=== PATIENT | female | born 1960 | race Caucasian/White ===

== ENCOUNTER 2023-11-21 09:02 | Emergency (ER) | payer BC ==
--- NOTE | 2023-11-21 09:48 | ED ---
General Adult HPI - General Chief complaint: Recheck/Abnormal Lab/Rx Stated complaint: Hypertension Time Seen by Provider: 11/21/23 09:11 Source: patient, RN notes reviewed Mode of arrival: ambulatory Limitations: no limitations - History of Present Illness Initial comments: 62-year-old female presents emergency department with chief complaint of hyperte nsion. Patient states she was just hospitalized and discharged from [facility] for a kidney stone which she had a stent placed. Patient states that her blood pressure was elevated 200/100 upon discharge she states that she did take her blood pressure medications this morning and it continues to be elevated. Patient states she has no complaints of chest pain shortness of breath fevers chills abdominal pain, flank pain. She states she is on ramipril for her blood pressure in which she is followed by her PCP. She denies any medication changes. She believes she was not receiving her medications while she was admitted though she reports taking it this morning a few hours prior to ER visit. - Related Data Home Medications Medication Instructions Recorded Confirmed Baclofen 10 mg PO BID 11/09/15 11/23/22 Calcium Carbonate [Calcium] 600 mg PO BID 11/09/15 11/23/22 Cholecalciferol [Vitamin D3] 1,000 unit PO BID 11/09/15 11/23/22 FLUoxetine HCL [PROzac] 20 mg PO DAILY 11/09/15 11/23/22 Multivitamin With Collagen 2 tab PO DAILY 11/09/15 11/23/22 Simvastatin [Zocor] 10 mg PO HS 11/09/15 11/23/22 Solifenacin Succinate [Vesicare] 10 mg PO HS 11/09/15 11/23/22 ramipriL [Altace] 5 mg PO DAILY 11/09/15 11/23/22 Etodolac [Lodine] 400 mg PO BID 11/23/22 11/23/22 SUMAtriptan succinate [Imitrex] 25 mg PO DIRECTED PRN 11/23/22 11/23/22 Topiramate [Topamax] 50 mg PO HS 11/23/22 11/23/22 Previous Rx's Medication Instructions Recorded Dicyclomine [Bentyl] 10 mg PO TID PRN 7 Days #21 capsule 11/21/22 Ondansetron Odt [Zofran Odt] 4 mg PO Q8HR PRN 2 Days #6 tab 11/21/22 traMADol HCl [Ultram] 50 mg PO Q6H PRN #6 tab 11/27/22 Allergies Allergy/AdvReac Type Severity Reaction Status Date / Time adhesive AdvReac Severe TEARS SKIN Verified 11/21/23 09:09 adhesive tape AdvReac Severe TEARS SKIN Verified 11/21/23 09:09 pregabalin [From [place]] AdvReac Unknown PALE, Verified 11/21/23 09:09 DOESNT FEEL WELL acetaminophen [From [place]] AdvReac Unknown Verified 11/21/23 09:10 hydrocodone [From [place]] AdvReac Unknown Verified 11/21/23 09:10 Review of Systems ROS Statement: Those systems with pertinent positive or pertinent negative responses have been documented in the HPI. ROS Other: All systems not noted in ROS Statement are negative. Past Medical History Past Medical History: Hypertension, Musculoskeletal Disorder, Osteoarthritis (OA) Additional Past Medical History / Comment(s): RSD right knee, DDD , BACK PAIN. HAD [employer] PAIN STIMULATOR IN RIGHT HIP-has been removed, possible TIA 1993- had left sided weakness for short time but resolved, HX OF HEMORRHOIDS & FISSURES. past hx kidney stones, gallstones History of Any Multi-Drug Resistant Organisms: None Reported Past Surgical History: Hysterectomy, Joint Replacement, Orthopedic Surgery, Tubal Ligation Additional Past Surgical History / Comment(s): JONNY BUNIONECTOMY, JONNY SHOULDER SURGERY, RIGHT TOTAL KNEE, JONNY CARPAL TUNNEL, PAIN STIMULATOR RIGHT HIP-then removed Past Anesthesia/Blood Transfusion Reactions: No Reported Reaction Past Psychological History: Anxiety, Depression Smoking Status: Former smoker Past Alcohol Use History: None Reported Past Drug Use History: None Reported - Past Family History Mother Family Medical History: Cancer Additional Family Medical History / Comment(s): SPINE AND LUNG CA Father Family Medical History: Cancer Additional Family Medical History / Comment(s): EMPHYSEMA, BLACK LUNG General Exam Limitations: no limitations General appearance: alert, in no apparent distress Head exam: Present: atraumatic, normocephalic, normal inspection Neck exam: Present: normal inspection. Absent: tenderness, meningismus, lymphadenopathy Respiratory exam: Present: normal lung sounds bilaterally. Absent: respiratory distress, wheezes, rales, rhonchi, stridor Cardiovascular Exam: Present: regular rate, normal rhythm, normal heart sounds. Absent: systolic murmur, diastolic murmur, rubs, gallop, clicks GI/Abdominal exam: Present: soft, normal bowel sounds. Absent: distended, tenderness, guarding, rebound, rigid Course Vital Signs 11/21/23 11/21/23 11/21/23 09:07 09:24 09:57 Temperature 98.1 F Pulse Rate 55 L 54 L 49 L Respiratory 18 18 Rate Blood Pressure 202/73 196/87 186/82 O2 Sat by Pulse 97 Oximetry 11/21/23 11/21/23 11/21/23 10:45 13:12 13:52 Temperature Pulse Rate 56 L 65 60 Respiratory 16 16 16 Rate Blood Pressure 173/66 154/64 149/69 O2 Sat by Pulse 98 98 97 Oximetry EKG Findings - EKG Comments: EKG Findings:: EKG performed at 9: 16 sinus bradycardia rate of 51 NM 147 QRS 96 QT/QTc 491/468 - EKG Results: EKG: interpreted by OLLIE Medical Decision Making - Medical Decision Making Was pt. sent in by a medical professional or institution (, PA, PERFORMANCE SOLUTIONS SPECIALIST, urgent care, hospital, or jail...) When possible be specific @ -No Did you speak to anyone other than the patient for history (EMS, parent, family, police, friend...)? What history was obtained from this source @ -No Did you review nursing and triage notes (agree or disagree)? Why? @ -I reviewed and agree with nursing and triage notes Were old charts reviewed (outside hosp., previous admission, EMS record, old EKG, old radiological studies, urgent care reports/EKG's, jail records)? Report findings @ -No old charts were reviewed Differential Diagnosis (chest pain, altered mental status, abdominal pain women, abdominal pain men, vaginal bleeding, weakness, fever, dyspnea, syncope, headache, dizziness, GI bleed, back pain, seizure, CVA, palpatations, mental health, musculoskeletal)? @ -Differential Chest Pain: Stable Angina, Unstable Angina, STEMI, NSTEMI Aortic Dissection, Pneumothorax, Musculoskeletal, Esophageal Spasm GERD, Cholecystitis, Pancreatitis, Zoster, this is not meant to be an all-inclusive list. EKG interpreted by me (3pts min.). @ -As above X-rays interpreted by me (1pt min.). @ -None done CT interpreted by me (1pt min.). @ -None done U/S interpreted by me (1pt. min.). @ -None done What testing was considered but not performed or refused? (CT, X-rays, U/S, labs)? Why? @ -None What meds were considered but not given or refused? Why? @ -None Did you discuss the management of the patient with other professionals (professionals i.e. Dr., PA, PERFORMANCE SOLUTIONS SPECIALIST, lab, RT, psych nurse, social services director, learn to swim instructor, teacher, marketing and communications officer, shelter case manager)? Give summary @ -No Was smoking cessation discussed for >3mins.? @ -No Was critical care preformed (if so, how long)? @ -No Were there social determinants of health that impacted care today? How? (Homelessness, low income, unemployed, alcoholism, drug addiction, transportation, low edu. Level, literacy, decrease access to med. care, snf, rehab)? @ -No Was there de-escalation of care discussed even if they declined (Discuss DNR or withdrawal of care, Hospice)? DNR status @ -No What co-morbidities impacted this encounter? (DM, HTN, Smoking, COPD, CAD, Cancer, CVA, ARF, Chemo, Hep., AIDS, mental health diagnosis, sleep apnea, morbid obesity)? @ -None Was patient admitted / discharged? Hospital course, mention meds given and route, prescriptions, significant lab abnormalities, going to OR and other pertinent info. @ -Discharge patient blood pressure improved patient feels greatly improved at this time. Patient has an appointment tomorrow made by the ER with her PCP regarding her blood pressure. Patient was given lisinopril dose for tomorrow morning she has a monitor at home and will return for any worsening changes symptoms. Undiagnosed new problem with uncertain prognosis? @ -No Drug Therapy requiring intensive monitoring for toxicity (Heparin, Nitro, Insulin, Cardizem)? @ -No Were any procedures done? @ -No Diagnosis/symptom? @ -Hypertension Acute, or Chronic, or Acute on Chronic? @ -Acute Uncomplicated (without systemic symptoms) or Complicated (systemic symptoms)? @ -Uncomplicated Side effects of treatment? @ -No Exacerbation, Progression, or Severe Exacerbation? @ -No Poses a threat to life or bodily function? How? (Chest pain, USA, PR, pneumonia, PE, COPD, DKA, ARF, appy, cholecystitis, CVA, Diverticulitis, Homicidal, Suicidal, threat to staff... and all critical care pts) @ -No - Lab Data Result diagrams: 11/21/23 09:50 11/21/23 09:50 Lab Results 11/21/23 11/21/23 11/21/23 Range/Units 09:50 09:50 11:23 WBC 6.2 (3.8-10.6) k/uL RBC 3.35 L (3.80-5.40) m/uL Hgb 10.7 L (11.4-16.0) gm/dL Hct 33.5 L (34.0-46.0) % MCV 99.9 (80.0-100.0) fL MCH 32.1 (25.0-35.0) pg MCHC 32.1 (31.0-37.0) g/dL RDW 12.5 (11.5-15.5) % Plt Count 208 (150-450) k/uL MPV 9.1 Neutrophils % 79 % Lymphocytes % 10 % Monocytes % 6 % Eosinophils % 2 % Basophils % 0 % Neutrophils # 4.9 (1.3-7.7) k/uL Lymphocytes # 0.6 L (1.0-4.8) k/uL Monocytes # 0.3 (0-1.0) k/uL Eosinophils # 0.1 (0-0.7) k/uL Basophils # 0.0 (0-0.2) k/uL Sodium 139 (137-145) mmol/L Potassium 3.7 (3.5-5.1) mmol/L Chloride 110 H (98-107) mmol/L Carbon Dioxide 21 L (22-30) mmol/L Anion Gap 8 mmol/L BUN 13 (7-17) mg/dL Creatinine 0.74 (0.52-1.04) mg/dL Est GFR (CKD-EPI)AfAm >90 (>60 ml/min/1.73 sqM) Est GFR (CKD-EPI)NonAf 88 (>60 ml/min/1.73 sqM) Glucose 89 (74-99) mg/dL Calcium 9.0 (8.4-10.2) mg/dL Total Bilirubin 0.8 (0.2-1.3) mg/dL AST 55 H (14-36) U/L ALT 79 H (4-34) U/L Alkaline Phosphatase 292 H (38-126) U/L Total Protein 6.0 L (6.3-8.2) g/dL Albumin 3.2 L (3.5-5.0) g/dL Urine Color Light Yellow Urine Appearance Clear (Clear) Urine pH 7.5 (5.0-8.0) Ur Specific [place] 1.011 (1.001-1.035) Urine Protein Trace H (Negative) Urine Glucose (UA) Negative (Negative) Urine Ketones 1+ H (Negative) Urine Blood Moderate H (Negative) Urine Nitrite Negative (Negative) Urine Bilirubin 2+ H (Negative) Urine Urobilinogen <2.0 (<2.0) mg/dL Ur Leukocyte Esterase Trace H (Negative) Urine RBC >182 H (0-5) /hpf Urine WBC 8 H (0-5) /hpf Ur Squamous Epith Cells <1 (0-4) /hpf Urine Mucus Rare H (None) /hpf Disposition Clinical Impression: Hypertension Disposition: HOME SELF-CARE Condition: Stable Instructions (If sedation given, give patient instructions): Hypertension (ED) Additional Instructions: Please return to the Emergency Department if symptoms worsen or any other concerns. Is patient prescribed a controlled substance at d/c from ED?: No Referrals: Mary Lou Bonner MD [Primary Care Provider] - 11/22/23 1:30 pm Time of Disposition: 12:22
[2023-11-21] MEDS: hydrALAZINE HCL 20 MG/ML 1 ML VIAL IVP STA ×2 (09:57→11:49)
[2023-11-21 09:58] LABS: Basophils % (A) 0 %; Eosinophils # (A) 0.1 k/uL (0-0.7); Eosinophils % (A) 2 %; HCT 33.5 % (34.0-46.0); HGB 10.7 gm/dL (11.4-16.0); Lymphocytes # (A) 0.6 k/uL (1.0-4.8); Lymphocytes % (A) 10 %; MCH 32.1 pg (25.0-35.0); MCHC 32.1 g/dL (31.0-37.0); MCV 99.9 fL (80.0-100.0); Mean Platelet Volume 9.1; Monocytes # (A) 0.3 k/uL (0-1.0); Monocytes % (A) 6 %; Neutrophils # (A) 4.9 k/uL (1.3-7.7); Neutrophils % (A) 79 %; Platelet Count 208 k/uL (150-450); RBC 3.35 m/uL (3.80-5.40); RDW 12.5 % (11.5-15.5); WBC 6.2 k/uL (3.8-10.6)
[2023-11-21 10:10] LABS: ALT 79 U/L (4-34); AST 55 U/L (14-36); African American GFR (CKD) >90 (>60 ml/min/1.73 sqM); Albumin 3.2 g/dL (3.5-5.0); Alkaline Phosphatase 292 U/L (38-126); Anion Gap 8 mmol/L; Blood Urea Nitrogen 13 mg/dL (7-17); Carbon Dioxide 21 mmol/L (22-30); Chloride 110 mmol/L (98-107); Glucose 89 mg/dL (74-99); Non-African American GFR(CKD) 88 (>60 ml/min/1.73 sqM); Potassium 3.7 mmol/L (3.5-5.1); Sodium 139 mmol/L (137-145); Total Bilirubin 0.8 mg/dL (0.2-1.3)
[2023-11-21 10:42] VITALS: TEMP 98.1
[2023-11-21 11:36] VITALS: RESP 16
[2023-11-21 11:51] LABS: Appearance,Urine Clear (Clear); Bilirubin,Urine 2+ (Negative); Blood,Urine Moderate (Negative); Color,Urine Light Yellow; Glucose,Urine (UA) Negative (Negative); Ketones,Urine 1+ (Negative); Leukocyte Esterase,Urine Trace (Negative); Mucus,Urine Rare /hpf; Nitrite,Urine Negative (Negative); PH, Urine 7.5 (5.0-8.0); Protein,Urine Trace (Negative); RBC,Urine >182 /hpf (0-5); Specific Gravity,Urine 1.011 (1.001-1.035); Squamous Epithelial Cell,Urine <1 /hpf (0-4); Urobilinogen,Urine <2.0 mg/dL (<2.0); WBC,Urine 8 /hpf (0-5)
[2023-11-21] MEDS: lisinopriL 10 MG TAB PO STA (12:33)
[2023-11-21] MEDS: SODIUM CHLORIDE 0.9% 500 ML 500 ML IV ONE (13:09)
[2023-11-21] MEDS: ONDANSETRON 4 MG/2 ML VIAL IVP STA (13:09)
[2023-11-21 14:17] VITALS: BP 149/69; PULSE 60
== END 2023-11-21 13:53 | disposition home or self-care (01) ==
LOC: EC 09:02
DX: I10 Essential (primary) hypertension (principal); R00.1 Bradycardia, unspecified; Z88.5 Allergy status to narcotic agent; Z88.6 Allergy status to analgesic agent; Z88.8 Allergy status to other drugs, medicaments and biological substances; Z91.09 Other allergy status, other than to drugs and biological substances; Z87.891 Personal history of nicotine dependence
CPT/HCPCS: 36415; 93005; 80053; 85025; 81001; 99284; 96374; 96375; 96376; 96361; J0360; J2405

== ENCOUNTER → 2024-01-10 | Outpatient (CLI) | payer BC ==
--- NOTE | 2024-01-16 11:54 | MM ---
Reason for Exam: Screening (asymptomatic). Last mammogram was performed 1 year(s) and 3 month(s) ago. Patient History: Menarche at age 12. First Full-Term at age 25. Hysterectomy at age 33. Postmenopausal. Risk Values: Lazara 5 year model risk: 1.7%. NCI Lifetime model risk: 7.4%. Prior Study Comparison: 10/23/2007 Bilateral Screening Mammogram, [facility]. 05/13/2021 Bilateral Screening Mammogram, [facility]. 09/08/2022 Bilateral Screening Mammogram, [facility]. 09/26/2022 Right Diagnostic Mammogram, [facility]. Tissue Density: The breasts are almost entirely fatty. Findings: Analyzed By CAD. Right breast: There is no suspicious group of microcalcifications or new suspicious mass. Left breast: There is no suspicious group of microcalcifications or new suspicious mass. Overall Assessment: Negative, BI-RAD 1 Management: Screening Mammogram of both breasts in [address] [facility] will attempt to contact patient to return for supplemental views and ultrasound if indicated. Patient should continue monthly self-breast exams. A clinical breast exam by your physician is recommended on an annual basis. This exam should not preclude additional follow-up of suspicious palpable abnormalities. Note on Lazara scores and lifetime risk: 1. A Lazara score greater than 3% is considered moderate risk. If this is the case, consider specialist referral to assess eligibility for a risk reducing agent. 2. If overall lifetime risk for the development of breast cancer is 20% or higher, the patient may qualify for future screening with alternating mammogram and breast MRI. Electronically signed and approved by: Karson Rasmussen DO
== END | disposition home or self-care (01) ==
LOC: RADMAMWWP 13:01
PROVIDERS: ATTEND Family Medicine
DX: Z12.31 Encounter for screening mammogram for malignant neoplasm of breast (principal); Z78.0 Asymptomatic menopausal state
CPT/HCPCS: 77063; 77067

== ENCOUNTER 2024-04-07 10:03 | Emergency (ER) | payer BC ==
[2024-04-07 10:20] VITALS: RESP 18; TEMP 98.1
--- NOTE | 2024-04-07 10:33 | ED ---
General Adult HPI - General Chief complaint: Back Pain/Injury Stated complaint: Back pain Time Seen by Provider: 04/07/24 10:21 Source: patient, family, RN notes reviewed Mode of arrival: ambulatory Limitations: no limitations - History of Present Illness Initial comments: 63-year-old female presents emergency department with chief complaint of right flank pain right lower back pain. She states it has been bothersome for the last 6 days. States it is worse with movement. States that she does have a history of kidney stones and feels somewhat similar. She denies any bowel, bladder Tea retention no lower extremity symptoms denies any saddle ane sthesias. Patient states she is better at rest placement some nausea without current vomiting no change in bowel habits. - Related Data Home Medications Medication Instructions Recorded Confirmed Baclofen 10 mg PO BID 11/09/15 11/23/22 Calcium Carbonate [Calcium] 600 mg PO BID 11/09/15 11/23/22 Cholecalciferol [Vitamin D3] 1,000 unit PO BID 11/09/15 11/23/22 FLUoxetine HCL [PROzac] 20 mg PO DAILY 11/09/15 11/23/22 Multivitamin With Collagen 2 tab PO DAILY 11/09/15 11/23/22 Simvastatin [Zocor] 10 mg PO HS 11/09/15 11/23/22 Solifenacin Succinate [Vesicare] 10 mg PO HS 11/09/15 11/23/22 ramipriL [Altace] 5 mg PO DAILY 11/09/15 11/23/22 Etodolac [Lodine] 400 mg PO BID 11/23/22 11/23/22 SUMAtriptan succinate [Imitrex] 25 mg PO DIRECTED PRN 11/23/22 11/23/22 Topiramate [Topamax] 50 mg PO HS 11/23/22 11/23/22 Previous Rx's Medication Instructions Recorded Dicyclomine [Bentyl] 10 mg PO TID PRN 7 Days #21 capsule 11/21/22 Ondansetron Odt [Zofran Odt] 4 mg PO Q8HR PRN 2 Days #6 tab 11/21/22 traMADol HCl [Ultram] 50 mg PO Q6H PRN #6 tab 11/27/22 Cephalexin [Keflex] 500 mg PO Q8HR #21 cap 04/07/24 Allergies Allergy/AdvReac Type Severity Reaction Status Date / Time adhesive AdvReac Severe TEARS SKIN Verified 04/07/24 10:20 adhesive tape AdvReac Severe TEARS SKIN Verified 04/07/24 10:20 pregabalin [From [place]] AdvReac Unknown PALE, Verified 04/07/24 10:20 DOESNT FEEL WELL acetaminophen [From [place]] AdvReac Unknown Verified 04/07/24 10:20 hydrocodone [From [place]] AdvReac Unknown Verified 04/07/24 10:20 Review of Systems ROS Statement: Those systems with pertinent positive or pertinent negative responses have been documented in the HPI. ROS Other: All systems not noted in ROS Statement are negative. Past Medical History Past Medical History: Hypertension, Musculoskeletal Disorder, Osteoarthritis (OA) Additional Past Medical History / Comment(s): RSD right knee, DDD , BACK PAIN. HAD [employer] PAIN STIMULATOR IN RIGHT HIP-has been removed, possible TIA 1993- had left sided weakness for short time but resolved, HX OF HEMORRHOIDS & FISSURES. past hx kidney stones, gallstones History of Any Multi-Drug Resistant Organisms: None Reported Past Surgical History: Hysterectomy, Joint Replacement, Orthopedic Surgery, Tubal Ligation Additional Past Surgical History / Comment(s): JONNY BUNIONECTOMY, JONNY SHOULDER SURGERY, RIGHT TOTAL KNEE, JONNY CARPAL TUNNEL, PAIN STIMULATOR RIGHT HIP-then removed Past Anesthesia/Blood Transfusion Reactions: No Reported Reaction Past Psychological History: Anxiety, Depression Smoking Status: Former smoker Past Alcohol Use History: Rare Past Drug Use History: None Reported - Past Family History Mother Family Medical History: Cancer Additional Family Medical History / Comment(s): SPINE AND LUNG CA Father Family Medical History: Cancer Additional Family Medical History / Comment(s): EMPHYSEMA, BLACK LUNG General Exam Limitations: no limitations General appearance: alert, in no apparent distress Head exam: Present: atraumatic, normocephalic, normal inspection Neck exam: Present: normal inspection. Absent: tenderness, meningismus, lymphadenopathy Respiratory exam: Present: normal lung sounds bilaterally. Absent: respiratory distress, wheezes, rales, rhonchi, stridor Cardiovascular Exam: Present: regular rate, normal rhythm, normal heart sounds. Absent: systolic murmur, diastolic murmur, rubs, gallop, clicks GI/Abdominal exam: Present: soft, normal bowel sounds. Absent: distended, tenderness, guarding, rebound, rigid Back exam: Present: full ROM, tenderness, CVA tenderness (R), paraspinal te nderness. Absent: CVA tenderness (L), vertebral tenderness Neurological exam: Present: reflexes normal. Absent: motor sensory deficit Course Vital Signs 04/07/24 04/07/24 10:17 12:10 Temperature 98.1 F Pulse Rate 55 L 54 L Respiratory 18 18 Rate Blood Pressure 151/80 145/84 O2 Sat by Pulse 98 97 Oximetry Medical Decision Making - Medical Decision Making Was pt. sent in by a medical professional or institution (, PA, RATCHET SETTER, urgent care, hospital, or long term...) When possible be specific @ -No Did you speak to anyone other than the patient for history (EMS, parent, family, police, friend...)? What history was obtained from this source @ -No Did you review nursing and triage notes (agree or disagree)? Why? @ -I reviewed and agree with nursing and triage notes Were old charts reviewed (outside hosp., previous admission, EMS record, old EKG, old radiological studies, urgent care reports/EKG's, long term records)? Report findings @ -No old charts were reviewed Differential Diagnosis (chest pain, altered mental status, abdominal pain women, abdominal pain men, vaginal bleeding, weakness, fever, dyspnea, syncope, headache, dizziness, GI bleed, back pain, seizure, CVA, palpatations, mental health, musculoskeletal)? @ -Differential Back Pain: Strain, zoster, cauda equina syndrome, epidural abscess, vertebral osteomyelitis, discitis, fracture, subluxation, disc herniation, DJD, spinal stenosis, dissection, AAA, pancreatitis, peptic ulcer disease, pyelonephritis, kidney stone, this is not meant to be an all-inclusive list. EKG interpreted by me (3pts min.). @ -None X-rays interpreted by me (1pt min.). @ -None done CT interpreted by me (1pt min.). @ -None done U/S interpreted by me (1pt. min.). @ -None done What testing was considered but not performed or refused? (CT, X-rays, U/S, labs)? Why? @ -None What meds were considered but not given or refused? Why? @ -None Did you discuss the management of the patient with other professionals (professionals i.e. , PA, RATCHET SETTER, lab, RT, psych nurse, social problems specialist, dipper fish, teacher, seal delivery vehicle officer, renal case manager)? Give summary @ -No Was smoking cessation discussed for >3mins.? @ -No Was critical care preformed (if so, how long)? @ -No Were there social determinants of health that impacted care today? How? (Homelessness, low income, unemployed, alcoholism, drug addiction, tr ansportation, low edu. Level, literacy, decrease access to med. care, penitentiary, rehab)? @ -No Was there de-escalation of care discussed even if they declined (Discuss DNR or withdrawal of care, Hospice)? DNR status @ -No What co-morbidities impacted this encounter? (DM, HTN, Smoking, COPD, CAD, Cancer, CVA, ARF, Chemo, Hep., AIDS, mental health diagnosis, sleep apnea, morbid obesity)? @ -None Was patient admitted / discharged? Hospital course, mention meds given and route, prescriptions, significant lab abnormalities, going to OR and other pertinent info. @ -Discharge patient feels great and. This time patient does have evidence of UTI concerning for possible early pyelonephritis. Patient does have reproducible back pain worse with movement. Patient be discharged in stable condition return [place] discussed patient received Rocephin. Undiagnosed new problem with uncertain prognosis? @ -No Drug Therapy requiring intensive monitoring for toxicity (Heparin, Nitro, Insulin, Cardizem)? @ -No Were any procedures done? @ -No Diagnosis/symptom? @ -UTI, back pain Acute, or Chronic, or Acute on Chronic? @ -Acute Uncomplicated (without systemic symptoms) or Complicated (systemic symptoms)? @ -Complicated Side effects of treatment? @ -No Exacerbation, Progression, or Severe Exacerbation? @ -No Poses a threat to life or bodily function? How? (Chest pain, USA, AR, pneumonia, PE, COPD, DKA, ARF, appy, cholecystitis, CVA, Diverticulitis, Homicidal, Suicidal, threat to staff... and all critical care pts) @ -No - Lab Data Result diagrams: 04/07/24 10:45 04/07/24 10:45 Lab Results 04/07/24 04/07/24 04/07/24 Range/Units 10:45 10:45 10:45 WBC 6.1 (3.8-10.6) k/uL RBC 4.02 (3.80-5.40) m/uL Hgb 13.2 (11.4-16.0) gm/dL Hct 40.8 (34.0-46.0) % MCV 101.3 H (80.0-100.0) fL MCH 32.8 (25.0-35.0) pg MCHC 32.3 (31.0-37.0) g/dL RDW 13.1 (11.5-15.5) % Plt Count 280 (150-450) k/uL MPV 8.1 Neutrophils % 71 % Lymphocytes % 18 % Monocytes % 5 % Eosinophils % 3 % Basophils % 0 % Neutrophils # 4.3 (1.3-7.7) k/uL Lymphocytes # 1.1 (1.0-4.8) k/uL Monocytes # 0.3 (0-1.0) k/uL Eosinophils # 0.2 (0-0.7) k/uL Basophils # 0.0 (0-0.2) k/uL Macrocytosis Slight Sodium 139 (137-145) mmol/L Potassium 4.3 (3.5-5.1) mmol/L Chloride 104 (98-107) mmol/L Carbon Dioxide 29 (22-30) mmol/L Anion Gap 6 mmol/L BUN 28 H (7-17) mg/dL Creatinine 1.02 (0.52-1.04) mg/dL Est GFR (CKD-EPI)AfAm 68 (>60 ml/min/1.73 sqM) Est GFR (CKD-EPI)NonAf 59 (>60 ml/min/1.73 sqM) Glucose 87 (74-99) mg/dL Calcium 9.9 (8.4-10.2) mg/dL Total Bilirubin 0.5 (0.2-1.3) mg/dL AST 26 (14-36) U/L ALT 13 (4-34) U/L Alkaline Phosphatase 95 (38-126) U/L Total Protein 6.6 (6.3-8.2) g/dL Albumin 4.0 (3.5-5.0) g/dL Lipase 190 (23-300) U/L Urine Color Light Yellow Urine Appearance Clear (Clear) Urine pH 6.0 (5.0-8.0) Ur Specific [place] 1.014 (1.001-1.035) Urine Protein Negative (Negative) Urine Glucose (UA) Negative (Negative) Urine Ketones Negative (Negative) Urine Blood Negative (Negative) Urine Nitrite Negative (Negative) Urine Bilirubin 2+ H (Negative) Urine Urobilinogen <2.0 (<2.0) mg/dL Ur Leukocyte Esterase Large H (Negative) Urine RBC 2 (0-5) /hpf Urine WBC 43 H (0-5) /hpf Ur Squamous Epith Cells 4 (0-4) /hpf Urine Bacteria Occasional H (None) /hpf Urine Mucus Rare H (None) /hpf Disposition Clinical Impression: UTI (urinary tract infection), Back pain Disposition: HOME SELF-CARE Condition: Stable Instructions (If sedation given, give patient instructions): Acute Low Back Pain (ED) Additional Instructions: Please return to the Emergency Department if symptoms worsen or any other concerns. Prescriptions: Cephalexin [Keflex] 500 mg PO Q8HR #21 cap Is patient prescribed a controlled substance at d/c from ED?: No Referrals: Mary Lou Bonner MD [Primary Care Provider] - 1-2 days Time of Disposition: 11:43
[2024-04-07] MEDS: ONDANSETRON 4 MG/2 ML VIAL IVP STA ×2 (10:42→11:52)
[2024-04-07] MEDS: KETOROLAC 15 MG/ML 1 ML VIAL IVP STA ×2 (10:42→11:50)
[2024-04-07] MEDS: SODIUM CHLORIDE 0.9% 500 ML 500 ML IV STA (10:44)
[2024-04-07] MEDS: SODIUM CHLORIDE 0.9% 1,000 ML IV STA (10:45)
[2024-04-07 11:07] LABS: Basophils % (A) 0 %; Eosinophils # (A) 0.2 k/uL (0-0.7); Eosinophils % (A) 3 %; HCT 40.8 % (34.0-46.0); HGB 13.2 gm/dL (11.4-16.0); Lymphocytes # (A) 1.1 k/uL (1.0-4.8); Lymphocytes % (A) 18 %; MCH 32.8 pg (25.0-35.0); MCHC 32.3 g/dL (31.0-37.0); MCV 101.3 fL (80.0-100.0); Macrocytosis Slight; Mean Platelet Volume 8.1; Monocytes # (A) 0.3 k/uL (0-1.0); Monocytes % (A) 5 %; Neutrophils # (A) 4.3 k/uL (1.3-7.7); Neutrophils % (A) 71 %; Platelet Count 280 k/uL (150-450); RBC 4.02 m/uL (3.80-5.40); RDW 13.1 % (11.5-15.5); WBC 6.1 k/uL (3.8-10.6)
[2024-04-07 11:09] LABS: Appearance,Urine Clear (Clear); Bacteria,Urine Occasional /hpf; Bilirubin,Urine 2+ (Negative); Blood,Urine Negative (Negative); Color,Urine Light Yellow; Glucose,Urine (UA) Negative (Negative); Ketones,Urine Negative (Negative); Leukocyte Esterase,Urine Large (Negative); Mucus,Urine Rare /hpf; Nitrite,Urine Negative (Negative); Protein,Urine Negative (Negative); RBC,Urine 2 /hpf (0-5); Specific Gravity,Urine 1.014 (1.001-1.035); Squamous Epithelial Cell,Urine 4 /hpf (0-4); Urobilinogen,Urine <2.0 mg/dL (<2.0); WBC,Urine 43 /hpf (0-5)
[2024-04-07 11:19] LABS: ALT 13 U/L (4-34); AST 26 U/L (14-36); African American GFR (CKD) 68 (>60 ml/min/1.73 sqM); Alkaline Phosphatase 95 U/L (38-126); Anion Gap 6 mmol/L; Blood Urea Nitrogen 28 mg/dL (7-17); Calcium 9.9 mg/dL (8.4-10.2); Carbon Dioxide 29 mmol/L (22-30); Chloride 104 mmol/L (98-107); Glucose 87 mg/dL (74-99); Lipase 190 U/L (23-300); Non-African American GFR(CKD) 59 (>60 ml/min/1.73 sqM); Potassium 4.3 mmol/L (3.5-5.1); Sodium 139 mmol/L (137-145); Total Bilirubin 0.5 mg/dL (0.2-1.3); Total Protein 6.6 g/dL (6.3-8.2)
[2024-04-07] MEDS: HYDROmorphone 0.5 MG/0.5 ML SYRINGE IVP STA (11:48)
[2024-04-07] MEDS: cefTRIAXone IN SWFI 1,000 MG/10 ML SYRINGE IVP STA (11:49)
[2024-04-07] MEDS: ACET/COD 300 MG/30 MG STARTER PACK 6 TAB BTL PO STA (11:50)
[2024-04-07 12:11] VITALS: BP 145/84; PULSE 54
== END 2024-04-07 12:12 | disposition home or self-care (01) ==
LOC: EC 10:03
CPT/HCPCS: 36415; 80053; 81001; 83690; 85025; 87077; 87086; 87186; 96361; 96374; 96375; 96376; 99284

== ENCOUNTER → 2024-04-10 | Outpatient (CLI) | payer BC ==
--- NOTE | 2024-04-10 10:42 | CTL ---
EXAMINATION TYPE: CT Low Dose Lung DATE OF EXAM ORDERED: 04/10/2024 History: Lung cancer screening CT DLP: 88.[address] CTDI: 2.4 mGy Automated exposure control for dose reduction was used. Comparison: None TECHNIQUE: Low dose computed tomography scan was performed through the chest at 1 mm thick sections a nd reconstructed images in multiple planes at 1 mm and [address] DIAGNOSTIC QUALITY: Satisfactory FINDINGS: There is a 2 to 3 mm nodule right upper lobe. There is a 5.5 mm juxtapleural nodule in the right lowe r lobe posteriorly. There is a 4.5 mm nodule in the left lower lobe. There is no airspace consolidation or abnormal interstitial density. The heart size is normal and there is no mediastinal, hilar or axillary adenopathy. There is no thora cic aortic aneurysm. Limited scanning through the abdomen reveals no gross abnormality. No focal osseous lesions are seen. IMPRESSION: 1. Lung RADS category 3, likely benign. Follow-up CT in 6 months is recommended to confirm stability of the above-described nodules. 2. No acute cardiopulmonary disease. [facility], , 04/10/2024 10:40 AM
== END | disposition home or self-care (01) ==
LOC: RADCTMAIN 09:37
PROVIDERS: ATTEND Family Medicine
DX: Z12.2 Encounter for screening for malignant neoplasm of respiratory organs (principal); Z87.891 Personal history of nicotine dependence
CPT/HCPCS: 71271

== ENCOUNTER → 2024-09-15 | Outpatient (CLI) | payer BC ==
--- NOTE | 2024-09-15 10:13 | XR ---
EXAMINATION TYPE: XR hand complete bilateral DATE OF EXAM: 09/15/2024 9:50 AM COMPARISON: None. CLINICAL INDICATION: Female, 63 years old with history of M79.642 PAin left hand M79.641 Pain rt hand M54.2, pain TECHNIQUE: Frontal, lateral and oblique images of the bilateral hands are obtained. FINDINGS: There is no acute fracture/dislocation evident in either hand. Moderate narrowing througho ut the PIP and DIP joints of bilateral fingers is present. There is relative sparing of the MCP joint s bilaterally. The overlying soft tissue appears unremarkable bilaterally. IMPRESSION: As above. [facility], , 09/15/2024 10:11 AM
--- NOTE | 2024-09-15 10:15 | XR ---
EXAMINATION TYPE: XR cervical spine comp DATE OF EXAM: 09/15/2024 9:49 AM COMPARISON: None. CLINICAL INDICATION: Female, 63 years old with history of M79.642 PAin left hand M79.641 Pain rt hand M54.2, pain TECHNIQUE: Frontal, lateral, oblique, swimmers, and open mouth view of the cervical spine are obtaine d. FINDINGS: The cervical spine is visualized in its entirety from C1 thru the top of T1 level, it is s atisfactory in alignment without evidence of acute fracture or dislocation. The pre-vertebral soft t issue appears within normal limits. The C1-C2 articulation is within normal limits on the open mouth view. Vertebral body heights are within normal limits. There is [id number] spurring and disc space narrowing at the C6-C7 level. The oblique images are within normal limits. The overlying soft t issue is unremarkable. IMPRESSION: As above. [facility], , 09/15/2024 10:13 AM
== END | disposition home or self-care (01) ==
LOC: RADXRMAIN 09:17
PROVIDERS: ATTEND Family Medicine
DX: M50.323 Other cervical disc degeneration at C6-C7 level (principal); M25.841 Other specified joint disorders, right hand; M79.641 Pain in right hand; M79.642 Pain in left hand
CPT/HCPCS: 72050

== ENCOUNTER → 2024-10-20 | Outpatient (CLI) | payer BC ==
--- NOTE | 2024-10-20 13:56 | CT ---
EXAMINATION TYPE: CT chest w con CT DLP: 506 mGycm, Automated exposure control for dose reduction was used. DATE OF EXAM: 10/20/2024 1:42 PM COMPARISON: CT low-dose lung 04/10/2024 CLINICAL INDICATION:Female, 63 years old with history of R91.1 SOLITARY PULMONARY NODULE; PHH, Pulmon kam nodule TECHNIQUE: Multiple axial images were obtained through the chest following the administration of 100 cc of Isovue 300. . Coronal and sagittal reformats reviewed. FINDINGS: LUNGS/ PLEURA: No pleural effusion, pneumothorax, focal consolidation. Stable pleural-based right low er lobe 5 mm subpleural nodule (series 4, image 39). Stable lateral right upper lobe 2.7 mm pulmonary nodule (series 4, image 18). Stable left lower lobe subpleural 2.9 mm pulmonary nodule (series 4, im age 36). No new or enlarging pulmonary nodules. AIRWAY: Patent and unremarkable.. HEART: Size within normal limits.No pericardial effusion. No significant coronary artery calcificatio ns. MEDIASTINUM: No evidence of adenopathy. VASCULATURE: No aortic aneurysm. Mild atherosclerotic calcification of the aorta and its branches. MUSCULOSKELETAL: No acute osseous abnormalities. Mild multilevel degenerative disc disease with anter ior osteophytosis. SOFT TISSUES/LYMPH NODES: Unremarkable. LOWER NECK: No significant findings. UPPER ABDOMEN: The gallbladder is surgically absent. IMPRESSION: Few stable pulmonary nodules from prior CT 04/10/2024. No new or enlarging pulmonary nodules. Accordin g to Fleischner criteria in a low-risk patient no follow-up is recommended. In a high-risk patient co nsider optional CT chest in 12 months. [facility], , 10/20/2024 1:53 PM
== END | disposition home or self-care (01) ==
LOC: RADCTMAIN 12:47
PROVIDERS: ATTEND Family Medicine
DX: R91.8 Other nonspecific abnormal finding of lung field (principal)
CPT/HCPCS: 71260; Q9967